=== PATIENT | female | born 1970 | race African-American/Black ===

== ENCOUNTER 2016-09-22 16:24 | Outpatient (CLI) | payer BC | END 2016-09-22 16:25 | disposition home or self-care (01) | LOC: LAB 16:24 | DX: T78.1XXD Other adverse food reactions, not elsewhere classified, subsequent encounter (principal) | CPT/HCPCS: 36415 ==

== ENCOUNTER 2017-01-06 09:04 | Outpatient (CLI) | payer BC ==
--- NOTE | 2017-01-07 10:00 | Vascular Lab Report ---
LOWER EXTREMITY VENOUS DUPLEX: REASON FOR EXAM: Edema. COMMENTS ON THE RIGHT: All veins visualized are freely compressible without evidence of internal echogenicity. Flow is spontaneous and phasic throughout. COMMENTS ON THE LEFT: All veins visualized are freely compressible without evidence of internal echogenicity. Flow is spontaneous and phasic throughout. IMPRESSION: No evidence of acute or chronic deep venous thrombosis in either lower extremity.
== END 2017-01-06 09:05 | disposition home or self-care (01) ==
LOC: VAS 09:04
PROVIDERS: ATTEND Internal Medicine
DX: R60.9 Edema, unspecified (principal)
CPT/HCPCS: 93970

== ENCOUNTER 2017-02-16 11:27 | Outpatient (CLI) | payer BC ==
--- NOTE | 2017-02-16 12:37 | XRay Report ---
ROUTINE CHEST, TWO VIEWS: HISTORY: Cough. The trachea, heart, mediastinal contour, lung huitron and bony thorax are unremarkable. IMPRESSION: Unremarkable chest x-ray.
== END 2017-02-16 11:28 | disposition home or self-care (01) ==
LOC: XRAY 11:27
DX: R05 Cough (principal)
CPT/HCPCS: 71020

== ENCOUNTER 2017-06-05 09:01 | Outpatient (CLI) | payer BC ==
[2017-06-05 09:48] LABS: Basophils % (Auto) 0.3 % (0.0-1.8); Eosinophils % (Auto) 5.1 % (0.0-4.3); Hematocrit 40.4 % (30.3-42.9); Hemoglobin 13.2 gm/dl (10.1-14.3); Mean Corpuscular HGB Conc 33 % (30-34); Mean Corpuscular Hemoglobin 29 pg (28-32); Mean Corpuscular Volume 88 fl (79-97); Platelet Count 265 K/mm3 (140-440); Red Blood Count 4.57 M/mm3 (3.65-5.03); Red Cell Distribution Width 13.9 % (13.2-15.2)
== END 2017-06-05 09:02 | disposition home or self-care (01) ==
LOC: LAB 09:01
PROVIDERS: ATTEND Obstetrics & Gynecology
DX: N93.9 Abnormal uterine and vaginal bleeding, unspecified (principal)
CPT/HCPCS: 36415; 83001; 83036; 84146; 84443; 85025

== ENCOUNTER 2017-06-08 10:00 | Outpatient (CLI) | payer BC ==
--- NOTE | 2017-06-09 07:54 | Ultrasound Report ---
ULTRASOUND PELVIC COMPLETE ULTRASOUND TRANSVAGINAL HISTORY: Uterine bleeding. TECHNIQUE: Transabdominal and transvaginal ultrasound with color and spectral doppler interrogation. The uterus is anteverted and measures 9.9 x 4.6 x 6.3 cm. No uterine fibroid disease is detected. The endometrial stripe is homogeneous and measures 1.9 cm. No obvious mass or complexity. There are numerous millimetric nabothian cysts in the cervix. The right ovary measures 3.4 x 2.8 x 3.4 cm and contains a 3.1 cm cyst. The left ovary measures 3.7 x 2.2 x 3.9 cm and contains a 2.4 cm cyst. No pelvic fluid collection. IMPRESSION: Bilateral simple appearing ovarian cysts. Numerous nabothian cysts in the cervix measuring up to 5 mm. The endometrium measures 15 mm.
--- NOTE | 2017-06-09 10:12 | Mammography Report ---
Bilateral screening mammography with CAD, including tomosynthesis. History colon cancer screening. Comparison study is dated May 06, 2016. Findings: The breast parenchyma is heterogeneously dense. There are 2 mass lesions in the left breast, upper outer quadrant. There is no architectural distortion. No suspicious calcifications are seen. The right breast is unremarkable. Impression: 2 masses are seen in the upper-outer quadrant of the left breast. Although multiple cysts have been seen on a previous breast ultrasound in 2015, these appear slightly larger. BI-RADS code: 0. Recommendation: Targeted ultrasound of the left breast.
== END 2017-06-08 10:01 | disposition home or self-care (01) ==
LOC: MAMMO 10:00
PROVIDERS: ATTEND Obstetrics & Gynecology
DX: Z12.31 Encounter for screening mammogram for malignant neoplasm of breast (principal); N83.291 Other ovarian cyst, right side; N83.292 Other ovarian cyst, left side; N88.8 Other specified noninflammatory disorders of cervix uteri
CPT/HCPCS: 76830; 76856; 77063; G0202; 77067

== ENCOUNTER 2017-06-19 14:32 | Outpatient (CLI) | payer BC ==
--- NOTE | 2017-06-19 16:21 | Ultrasound Report ---
Bilateral breast ultrasound: Imaging of the upper outer left breast performed based on recent mammotomograms findings of 2 masses. In the 12:00 location approximately 4 cm from the nipple is a 13 mm echolucent mass with sharp margins and slight posterior enhancement. There is an eccentric calcification. In the 2:00 location is a 5 mm echolucent circumscribed mass and in the 3:00 location there is a similar 12 mm echolucent mass. All of these have characteristics of a simple cyst. Global right breast ultrasound demonstrated several small circumscribed masses with posterior enhancement and sharply defined richards. A few fine echoes can be seen within a couple of the masses. The largest of these measures under 1 cm and mostly in the lateral breast within 4 cm of the nipple. Impression: There are no solid masses in either breast. The 3:00 mass and possibly the 12:00 mass which correspond with the mammographic findings and represent simple cysts. Recommendation: Annual mammogram followup. BI-RADS CATEGORY: 2 = Benign ACR BI-RADS MAMMOGRAPHIC CODES: 0 = Needs additional imaging evaluation; 1 = Negative; 2 = Benign; 3 = Probably benign; 4 = Suspicious; 5 = Malignant; 6 = Known biopsy-proven malignancy COMMENT: 1. Dense breast tissue, i.e., adenosis, fibrocystic changes, etc., may obscure an underlying neoplasm. 2. Approximately 10% of cancers are not detected with mammography. 3. A negative mammography report should not delay biopsy if a clinically suspicious mass is present.
== END 2017-06-19 14:33 | disposition home or self-care (01) ==
LOC: US 14:32
PROVIDERS: ATTEND Obstetrics & Gynecology
DX: R92.1 Mammographic calcification found on diagnostic imaging of breast (principal)

== ENCOUNTER 2017-07-15 14:32 | Outpatient (CLI) | payer BC ==
--- NOTE | 2017-07-15 16:11 | Magnetic Resonance Report ---
MRI RIGHT KNEE WITHOUT CONTRAST: 07/15/17 CLINICAL: Right knee pain. TECHNIQUE: Sagittal proton density, coronal T1, sagittal, coronal and axial T2 fat sat and and sagittal gradient T2*sequences on a 1.5 Opal magnet. FINDINGS: Tear the anterior horn of the lateral meniscus with abnormal signal extending to the superior articular surface on sagittal sequences. The medial meniscus is intact. Intact anterior cruciate and posterior cruciate ligaments. Normal marrow signal with no bone contusion or fracture. The femoral cartilage appears intact. There is a moderate size knee joint effusion. Normal patella with intact cartilage, tendon and retinaculum. The collateral ligaments are intact. Intact posterolateral corner structures including the popliteus tendon. No popliteal cyst. IMPRESSION: 1. Remote tear of the anterior horn lateral meniscus. 2. Moderate knee joint effusion. 3. No edematous injury.
== END 2017-07-15 14:33 | disposition home or self-care (01) ==
LOC: MRI 14:32
PROVIDERS: ATTEND Nurse Practitioner Family
DX: S83.281A Other tear of lateral meniscus, current injury, right knee, initial encounter (principal); X58.XXXA Exposure to other specified factors, initial encounter; Y93.89 Activity, other specified; Y92.89 Other specified places as the place of occurrence of the external cause; Y99.8 Other external cause status
CPT/HCPCS: 73721